=== PATIENT | female | born 1975 | race Caucasian/White ===

== ENCOUNTER 2022-07-09 15:23 | Emergency (ER) | payer BC ==
[~2022-07-09 15:23] MED LIST: Iopamidol 370 76% 100 ML VIAL ONE
[2022-07-09] MEDS ORDERED: Ondansetron PF 4 MG/2 ML Vial ONE (15:55)
[2022-07-09] MEDS ORDERED: Morphine 4 MG/ML VIAL ONE ×2 (15:55→16:40)
[2022-07-09 15:59] LABS: #Basophils 0.1 thou/uL (0.0-0.2); #Lymphocytes 0.8 thou/uL (1.20-3.40); #Monocytes 0.7 thou/uL (0.11-0.59); #Neutrophils 14.3 thou/uL (1.40-6.50); %Basophils 0.4 % (0.0-1.0); %Eosinophils 0.1 % (0.0-10.0); %Lymphocytes 5.3 % (21.0-51.0); %Monocytes 4.3 % (0.0-10.0); %Neutrophils 90.1 % (42.0-75.0); Hemoglobin 15.4 g/dL (12.0-16.0); Mean Corpuscular HGB CONC 32.5 g/dL (32.0-36.0); Mean Corpuscular Hemoglobin 27.7 pg (27.0-31.0); Mean Corpuscular Volume 85.5 fl (78.0-98.0); Mean Platelet Volume 7.6 fL (7.4-10.4); Platelet Count 251 10x3/uL (130-400); RBC Distribution Width 12.1 % (11.5-14.5); Red Blood Cell (RBC) Count 5.54 mill/uL (4.20-5.40); White Blood Cell (WBC) Count 15.9 10x3/uL (4.8-10.8)
[2022-07-09 16:30] LABS: ALT (SGPT) 23 U/L (8-55); AST (SGOT) 25 U/L (5-34); Albumin 4.6 g/dL (3.5-5.0); Alkaline Phosphatase 78 U/L (40-110); Anion Gap 16 mmol/L (10-20); BUN (Urea Nitrogen) 12 mg/dL (7.0-18.7); Bilirubin, Total 0.5 mg/dL (0.2-1.2); Calc. Creatinine Clearance 0 mL/min (70-130); Calcium 10.7 mg/dL (7.8-10.44); Carbon Dioxide 25 mmol/L (22-29); Chloride 100 mmol/L (98-107); Estimated GFR 76; Globulin 2.8 g/dL (2.4-3.5); Glucose 112 mg/dL (70-105); Lipase 22 U/L (8-78); Potassium 3.7 mmol/L (3.5-5.1); Protein, Total 7.4 g/dL (6.0-8.3); Sodium 137 mmol/L (136-145)
[2022-07-09] MEDS ORDERED: Ketorolac Tromethamine 60 MG/2 ML VIAL ONE (17:20)
[2022-07-09] MEDS ORDERED: Fentanyl 100 MCG/2 ML VIAL ONE (17:31)
[2022-07-09] MEDS ORDERED: Piperacillin/Tazobactam 4.5 GM VIAL ONE (17:31)
[2022-07-09] MEDS ORDERED: Sodium Chloride 0.9% 100 ML ONE (17:31)
[2022-07-09] MEDS ORDERED: HYDROmorphone 0.5 MG/0.5 ML SYRINGE ONE (18:15)
== END 2022-07-09 19:00 | disposition short-term general hospital (02) ==
LOC: NAV ERS 15:23
DX: K81.0 Acute cholecystitis (principal)
CPT/HCPCS: 74177; 80053; 83690; 84484; 85025; 93005; 96365; 96375; 96376; J1170; J1885; J2270; J2405; J2543; J3010; Q9967